=== PATIENT | female | born 1960 | race African-American/Black ===

== ENCOUNTER 2016-09-09 07:30 | Emergency (ER) | payer MEDICAID, OTHER ==
[~2016-09-09] VITALS: Ht 165.1 cm; Wt 140.0 kg
[~2016-09-09 07:30] MED LIST: AMLO10TA2 PO; CARV12.52 PO; ERGO1CAP10 PO; FURO80TA PO; HYDR-3583 PO; IBUP800T23 PO; JANU50TA4 PO; SPIR25TA PO
[2016-09-09 07:38] VITALS: BP 222/112; PULSE 86; RESP 24; TEMP 97.9; O2SAT 97
[2016-09-09 08:05] VITALS: BP 218/96; PULSE 72; RESP 18; TEMP 98.7; O2SAT 96
--- NOTE | 2016-09-09 08:06 | PD ---
HPI Chief Complaint: GI Complaint Time Seen by Provider: 08:06 Travel History International Travel<30 days: No Contact w/Intl Traveler<30days: No Traveled to known affect area: No History of Present Illness HPI 55-year-old female came to the emergency room with history of multiple complaints including left knee joint pain for past one year which has worsened over the past one month ago she is now starting to use the cane. She had an x- ray of the knee done 1 month ago. Patient had an x-ray done of that knee one year ago and was told that she should would require a knee replacement eventually. She is also complaining of cough and vomiting since last night. She says she has been upchucking after she coughs couple times. She was in the neighborhood and had come to drop her daughter to the high school when she decided to stop in the ER and get it checked. Her blood pressure was elevated in triage. Patient says she hasn't taken any of her medications this morning. She is otherwise awake and talking and answering questions appropriately. She called her primary care who asked her to come to the emergency room and see if she could be given a hydrocortisone shot in her knee. I explained to her that that is not the standard of care for emergency room practitioners. However further workup will be done to rule out any emergent issues. [facility] Past Medical History Narrative Medical List of her past medical, surgical, social and family history was reviewed from the nursing note. Autoimmune Disease: No Blood Disorders: No Heart Rhythm Problems: No Cancer: No Cardiac Catheterization: No Cardiovascular Problems: Yes (HTN) High Cholesterol: No Congestive Heart Failure: No Diabetes: Yes (METFORMIN) Diminished Hearing: No Glaucoma: No Hepatitis: No Hiatal Hernia: No Herniated Disk: Yes Hypertension: No Psychiatric: No Thyroid Disease: No PNEUMOCCOCAL Vaccine (Year): 2 Menopausal: Yes : 2 Para: 2 Past Surgical History Abdominal Surgery: Yes AICD: No Cardiac Surgery: No Section: Yes (X 2) Cholecystectomy: Yes Coronary Artery Bypass Graft: No Ear Surgery: No Endocrine Surgery: No Eye Surgery: No Genitourinary Surgery: No Gynecologic Surgery: Yes ( X 2) Oral Surgery: No Pacemaker: No Thoracic Surgery: No Other Surgery: Yes (HEMORRHOID SX; BREAST REDUCTION) Social History Alcohol Use: No Tobacco Use: Yes (1/2 PPD) Substance Use: No Allergies-Medications (Allergen,Severity, Reaction): Coded Allergies: Flagyl (Verified Allergy, Severe, HIVES, 09/09/16) Naproxen (Verified Adverse Reaction, Mild, Edema . STATES SHE IS NOT ALLERGIC TO ASPIRIN, 09/09/16) Comments List of her allergies reviewed from the nursing note. Reported Meds & Prescriptions Reported Meds & Active Scripts Active Reported Hydrocodone-Acetaminophen 10-325 mg Tab 1 Tab PO Q4H PRN Ibuprofen 800 Mg Tab 800 Mg PO Q8H PRN Janumet (Sitagliptin-Metformin) 50-500 Mg Tab 1 Tab PO DAILY Amlodipine (Amlodipine Besylate) 10 Mg Tab 10 Mg PO DAILY Spironolactone 25 Mg Tab 25 Mg PO BIDPC Furosemide 80 Mg Tab 80 Mg PO DAILY Vitamin D (Ergocalciferol) 50,000 Unit Cap 50,000 Units PO Q7D Carvedilol 12.5 Mg Tab 12.5 Mg PO DAILY Narrative Medication List of her home medications reviewed from the nursing note. Review of Systems Except as stated in HPI: all other systems reviewed are Neg Physical Exam Narrative GENERAL: Awake, alert, obese, no obvious distress SKIN: Focused skin assessment warm/dry. HEAD: Atraumatic. Normocephalic. EYES: Pupils equal and round. No scleral icterus. No injection or drainage. ENT: No nasal bleeding or discharge. Mucous membranes pink and moist. NECK: Trachea midline. No JVD. CARDIOVASCULAR: Regular rate and rhythm. No murmur appreciated. RESPIRATORY: No accessory muscle use. Clear to auscultation. Breath sounds equal bilaterally. GASTROINTESTINAL: Abdomen soft, non-tender, nondistended. Hepatic and splenic margins not palpable. MUSCULOSKELETAL: No obvious deformities. No clubbing. No cyanosis. No edema. Left knee is slightly swollen but not red or hot. Limited range of motion due to the pain at the knee joint. NEUROLOGICAL: Awake and alert. No obvious cranial nerve deficits. Motor grossly within normal limits. Normal speech. PSYCHIATRIC: Appropriate mood and affect; insight and judgment normal. Data Data Last Documented VS Vital Signs Date Time Temp Pulse Resp B/P Pulse Ox O2 Delivery O2 Flow Rate FiO2 09/09/16 09:54 193/95 09/09/16 08:05 98.7 72 18 96 Room Air Orders Complete Blood Count With Diff (09/09/16 08:21) Basic Metabolic Panel (Bmp) (09/09/16 08:21) Prothrombin Time / Inr (Pt) (09/09/16 08:21) Chest, Pa & Lat (09/09/16 ) Knee, Complete (4vws) (09/09/16 ) Amlodipine (Norvasc) (09/09/16 08:30) Uric Acid (09/09/16 08:21) Labs Laboratory Tests Test 09/09/16 08:28 White Blood Count 7.4 TH/MM3 Red Blood Count 4.16 MIL/MM3 Hemoglobin 12.0 GM/DL Hematocrit 38.2 % Mean Corpuscular Volume 91.7 FL Mean Corpuscular Hemoglobin 28.9 PG Mean Corpuscular Hemoglobin 31.5 % Concent Red Cell Distribution Width 13.0 % Platelet Count 237 TH/MM3 Mean Platelet Volume 10.2 FL Neutrophils (%) (Auto) 61.9 % Lymphocytes (%) (Auto) 28.7 % Monocytes (%) (Auto) 6.3 % Eosinophils (%) (Auto) 2.2 % Basophils (%) (Auto) 0.9 % Neutrophils # (Auto) 4.6 TH/MM3 Lymphocytes # (Auto) 2.1 TH/MM3 Monocytes # (Auto) 0.5 TH/MM3 Eosinophils # (Auto) 0.2 TH/MM3 Basophils # (Auto) 0.1 TH/MM3 CBC Comment DIFF FINAL Differential Comment Prothrombin Time 10.7 SEC Prothromb Time International 1.0 RATIO Ratio Sodium Level 137 MEQ/L Potassium Level 5.0 MEQ/L Chloride Level 99 MEQ/L Carbon Dioxide Level 34.7 MEQ/L Anion Gap 3 MEQ/L Blood Urea Nitrogen 8 MG/DL Creatinine 0.91 MG/DL Estimat Glomerular Filtration 78 ML/MIN Rate Random Glucose 153 MG/DL Uric Acid 5.3 MG/DL Calcium Level 9.1 MG/DL [facility] Medical Decision Making Medical Screen Exam Complete: Yes Emergency Medical Condition: Yes Medical Record Reviewed: Yes Differential Diagnosis Knee arthritis, knee effusion, essential hypertension, noncompliant Narrative Course 9 AM awaiting for blood test results. Patient has been given her amlodipine dose for her blood pressure. I have ordered x-ray of her chest as well as her knee. If everything is within normal limits I will discharge her home. 9:47 AM all the blood test and x-ray reports came back and within acceptable limits. I am comfortable discharging her home. Her knee x-ray showed worsening arthritis which I have let her know. She will try to call her orthopedics from [place] and started talking about the knee replacement. Meanwhile the nurses trying to get a minimal blood pressure on the patient. She did receive her amlodipine. Procedures EKG Prior to Arrival: No Diagnosis Primary Impression: Arthritis of knee Additional Impressions: acute on chronic knee pain Essential hypertension Obesity, morbid, BMI 50 or higher Referrals: Primary Care Physician 2 days Additional Instructions: Please take your blood pressure medication as prescribed. Follow-up with the orthopedics regarding your knee joint. Return to the ER if the condition worsens or any other new concerns. Exercise and weight loss would help with the arthritis as well. Med/Other Pt SpecificInfo: No Change to Meds Disposition: 01 DISCHARGE HOME Condition: Stable Sirisha Jimenez MD Sep 09, 2016 08:06
[2016-09-09 08:20] VITALS: BP 227/98
[2016-09-09 08:50] LABS: AUTOMATED NEUTROPHIL # 4.6 TH/MM3 (1.8-7.7); BASOPHIL # 0.1 TH/MM3 (0-0.2); BASOPHIL % 0.9 % (0.0-2.0); EOSINOPHIL # 0.2 TH/MM3 (0-0.4); EOSINOPHIL % 2.2 % (0.0-4.0); HEMATOCRIT 38.2 % (35.0-46.0); HEMO FLAGS DIFF FINAL; LYMPH % 28.7 % (9.0-44.0); LYMPHOCYTE # 2.1 TH/MM3 (1.0-4.8); MEAN CELL VOLUME 91.7 FL (80.0-100.0); MEAN CORPUSCULAR HEMOGLOBIN 28.9 PG (27.0-34.0); MEAN CORPUSCULAR HGB CONC 31.5 % (32.0-36.0); MONO % 6.3 % (0.0-8.0); NEUT % 61.9 % (16.0-70.0); PLATELET COUNT 237 TH/MM3 (150-450); RED BLOOD COUNT 4.16 MIL/MM3 (4.00-5.30); WHITE BLOOD COUNT 7.4 TH/MM3 (4.0-11.0)
[2016-09-09 09:03] LABS: PROTHROMBIN TIME - PATIENT 10.7 SEC (9.8-11.6)
[2016-09-09 09:15] LABS: BICARBONATE 34.7 MEQ/L (21.0-32.0); URIC ACID 5.3 MG/DL (2.6-6.0)
--- NOTE | 2016-09-09 09:17 | RADRPT ---
EXAM DATE/TIME: 09/09/2016 09:02 [facility] COMPARISON: No previous studies available for comparison. INDICATIONS : Patient states shortness of breath. MEDICAL HISTORY : None. SURGICAL HISTORY : None. ENCOUNTER: Initial ACUITY: 1 day PAIN SCORE: 2/10 LOCATION: Bilateral chest FINDINGS: Lungs are markedly under aerated. There is mild interstitial prominence probably normal for this to be of inspiration. I see no alveolar consolidation, pleural effusion or pneumothorax. CONCLUSION: Suboptimal chest based on inspiration and size. I see no overt congestive failure or consolidation. Doron Wade MD FACR on September 09, 2016 at 9:09 Board Certified Radiologist. This report was verified electronically.
--- NOTE | 2016-09-09 09:31 | RADRPT ---
EXAM DATE/TIME: 09/09/2016 09:02 [facility] COMPARISON: KNEE LEFT COMPLETE (4VWS), August 19, 2014, 22:02. INDICATIONS : Patient states left knee pain, no known trauma to area. MEDICAL HISTORY : None. SURGICAL HISTORY : None. ENCOUNTER: Initial ACUITY: 1 month PAIN SCORE: 8/10 LOCATION: Left Knee FINDINGS: There is no evidence of joint effusion or fracture. Mineralization and alignment are satisfactory. Th ere are prominent degenerative changes with tricompartmental joint space narrowing and osteophytes mo st prominent at the medial and patellofemoral compartments. These findings have progressed somewhat s benjamin the previous examination. CONCLUSION: Degenerative changes somewhat worse than on prior exam. No acute findings. Josh Mccarthy MD on September 09, 2016 at 9:28 Board Certified Radiologist. This report was verified electronically.
[2016-09-09 09:38] VITALS: BP 225/92
[2016-09-09 09:49] VITALS: BP 189/92
[2016-09-09 09:54] VITALS: BP 193/95
== END 2016-09-09 11:08 | disposition home or self-care (01) ==
LOC: NEPC 07:30
DX: M17.12 Unilateral primary osteoarthritis, left knee (principal); I10 Essential (primary) hypertension; F17.200 Nicotine dependence, unspecified, uncomplicated; R06.02 Shortness of breath; E66.01 Morbid (severe) obesity due to excess calories; Z68.43 Body mass index [BMI] 50.0-59.9, adult; E11.9 Type 2 diabetes mellitus without complications; Z79.84 Long term (current) use of oral hypoglycemic drugs
CPT/HCPCS: 71020; 73564; 80048; 84550; 85025; 85610; 99283

== ENCOUNTER 2017-09-23 16:45 | Emergency (ER) | payer MEDICARE, MEDICAID ==
[~2017-09-23] VITALS: Ht 165.1 cm; Wt 145.9 kg
[~2017-09-23 16:45] MED LIST changes: +IBUP1TAB7 PO; -IBUP800T23 PO
[2017-09-23 17:07] VITALS: BP 166/96; PULSE 96; RESP 20; TEMP 98.5; O2SAT 99
--- NOTE | 2017-09-23 18:10 | PD ---
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 Patient says that she went to see her primary care on Friday for dysuria and was started on ciprofloxacin. Patient says the dysuria has become better but since yesterday or day before she started having a lot of itching and burning in the vaginal area. She has never had this before. Right now it feels like it is on fire in their blisters. Patient was a little hypertensive and blood pressure has risen since she came in to the ER. Patient is a diabetic. [facility] Past Medical History Narrative Medical List of her past medical, surgical, social and family history is reviewed from the nursing note. Arthritis: Yes Autoimmune Disease: No Blood Disorders: No Anxiety: Yes (? heart ) Heart Rhythm Problems: No Cancer: No Cardiac Catheterization: No Cardiovascular Problems: Yes (HTN on mulp meds) High Cholesterol: No Congestive Heart Failure: No Diabetes: Yes (takes janumet now) Diminished Hearing: No Glaucoma: No Headaches: Yes Hepatitis: No Hiatal Hernia: No Herniated Disk: Yes Hypertension: Yes Musculoskeletal: Yes (knee and shoulder) Psychiatric: No Respiratory: Yes (r/t admission) Thyroid Disease: No PNEUMOCCOCAL Vaccine (Year): 2 Menopausal: Yes : 2 Para: 2 Past Surgical History Abdominal Surgery: Yes AICD: No Cardiac Surgery: No Section: Yes (X 2) Cholecystectomy: Yes Coronary Artery Bypass Graft: No Ear Surgery: No Endocrine Surgery: No Eye Surgery: No Genitourinary Surgery: No Gynecologic Surgery: Yes ( X 2) Oral Surgery: No Pacemaker: No Thoracic Surgery: No Other Surgery: Yes (HEMORRHOID SX; BREAST REDUCTION) Social History Alcohol Use: Yes (occ) Tobacco Use: Yes (1/2 PPD) Substance Use: No Allergies-Medications (Allergen,Severity, Reaction): Coded Allergies: metronidazole (Unverified Allergy, Severe, HIVES, 09/23/17) naproxen (Unverified Adverse Reaction, Mild, Edema . STATES SHE IS NOT ALLERGIC TO ASPIRIN, 4/17/18) Comments List of her allergies reviewed from the nursing note. Reported Meds & Prescriptions Reported Meds & Active Scripts Active Macrobid (Nitrofurantoin Monoh/Nitrofur Macro) 100 Mg Cap 100 Mg PO BID 7 Days Reported Hydrocodone-Acetaminophen 10-325 mg Tab 1 Tab PO Q4H PRN Ibuprofen 800 Mg Tab 800 Mg PO Q8H PRN Janumet (Sitagliptin-Metformin) 50-500 Mg Tab 1 Tab PO DAILY Amlodipine (Amlodipine Besylate) 10 Mg Tab 10 Mg PO DAILY Carvedilol 12.5 Mg Tab 12.5 Mg PO DAILY Narrative Medication List of her home medications reviewed from the nursing note. Review of Systems Except as stated in HPI: all other systems reviewed are Neg Genitourinary: Positive: Discharge Physical Exam Narrative GENERAL: Awake, alert, morbidly obese, mildest SKIN: Focused skin assessment warm/dry. HEAD: Atraumatic. Normocephalic. EYES: Pupils equal and round. No scleral icterus. No injection or drainage. ENT: No nasal bleeding or discharge. Mucous membranes pink and moist. NECK: Trachea midline. No JVD. CARDIOVASCULAR: Regular rate and rhythm. No murmur appreciated. RESPIRATORY: No accessory muscle use. Clear to auscultation. Breath sounds equal bilaterally. GASTROINTESTINAL: Abdomen soft, non-tender, nondistended. Hepatic and splenic margins not palpable. : External inspection appears to be normal. Speculum exam showed yellowish to greenish discharge without any foul odor. No mucosal or skin blisters or erosions noticed. MUSCULOSKELETAL: No obvious deformities. No clubbing. No cyanosis. No edema. NEUROLOGICAL: Awake and alert. No obvious cranial nerve deficits. Motor grossly within normal limits. Normal speech. PSYCHIATRIC: Appropriate mood and affect; insight and judgment normal. Data Data Last Documented VS Vital Signs Date Time Temp Pulse Resp B/P (MAP) Pulse Ox O2 Delivery O2 Flow Rate FiO2 09/23/17 18:18 94 20 182/82 (115) 100 Room Air 09/23/17 17:07 98.5 Orders Orders Urinalysis - C+S If Indicated (09/23/17 17:10) Gc And Chlamydia Pcr (09/23/17 18:54) Wet Prep Profile (09/23/17 18:54) Blood Glucose (09/23/17 19:20) Urine Culture (09/23/17 18:40) Nitrofurantoin Monohyd Macrocr (Macrobid (09/23/17 19:45) Ed Discharge Order (09/23/17 19:47) Labs Laboratory Tests Test 09/23/17 18:40 09/23/17 19:05 Urine Color YELLOW Urine Turbidity HAZY Urine pH 6.0 Urine Specific [place] 1.018 Urine Protein 30 mg/dL Urine Glucose (UA) NEG mg/dL Urine Ketones NEG mg/dL Urine Occult Blood SMALL Urine Nitrite NEG Urine Bilirubin NEG Urine Urobilinogen LESS THAN 2.0 MG/DL Urine Leukocyte Esterase LARGE Urine RBC 27 /hpf Urine WBC 20 /hpf Urine Squamous Epithelial Cells 15 /hpf Urine Bacteria FEW /hpf Urine Hyaline Casts 3 /lpf Urine Mucus FEW /lpf Microscopic Urinalysis Comment CULTURE INDICATED Clue Cells (Wet Prep) NONE SEEN Vaginal Trichomonas (Wet Prep) NONE SEEN Vaginal Yeast (Wet Prep) NONE SEEN Chlamydia trachomatis DNA (PCR) NOT DETECTED Neisseria gonorrhoeae DNA (PCR) NOT DETECTED MDM Medical Decision Making Medical Screen Exam Complete: Yes Emergency Medical Condition: Yes Medical Record Reviewed: Yes Differential Diagnosis Vaginitis, bacterial vaginosis, UTI Narrative Course 7:20 PM waiting for the UA and the wet prep. 7:47 PM UA suggestive of UTI with some RBCs. Wet prep is negative for everything. GC and Chlamydia is pending. I am comfortable discharging the patient home on Macrobid. First dose has been given here. Procedures EKG Prior to Arrival: No Diagnosis Primary Impression: Cystitis Additional Instructions: Stop taking the ciprofloxacin. Take the new medication that has been prescribed to you. Return to the emergency room if condition worsens or any other new concerns. Otherwise follow-up with your primary care. Med/Other Pt SpecificInfo: Prescription(s) given Scripts Nitrofurantoin Monohydrate Macrocrystals (Macrobid) 100 Mg Cap 100 MG PO BID for Infection for 7 Days, #14 CAP 0 Refills Prov: Sirisha Jimenez MD 09/23/17 Disposition: 01 DISCHARGE HOME Condition: Stable Sirisha Jimenez MD Sep 23, 2017 18:10
[2017-09-23 18:18] VITALS: BP 182/82; PULSE 94; RESP 20; O2SAT 100
[2017-09-23 19:35] LABS: BACTERIA, URINE FEW /hpf; BILIRUBIN, URINE NEG (NEG); BLOOD, URINE SMALL (NEG); GLUCOSE,URINE NEG (NEG); HYALINE CAST, URINE 3 /lpf (RARE); KETONE, URINE NEG (NEG); MUCUS URINE FEW /lpf (OCC); NITRITE,URINE NEG (NEG); SQUAMOUS EPITHELIAL CELL URINE 15 /hpf (0-5); URINE COLOR YELLOW (YELLW/STRAW); URINE LEUKOCYTE ESTERASE LARGE (NEG)
[2017-09-23] MEDS ORDERED: NITROFURANTOIN MONOHYD MACROCR 100 MG CAP PO ONE (19:45)
[2017-09-23] MEDS ORDERED: MACR100C2 PO (19:48)
== END 2017-09-23 21:23 | disposition home or self-care (01) ==
LOC: NEPD 16:45
DX: N30.90 Cystitis, unspecified without hematuria (principal); F17.200 Nicotine dependence, unspecified, uncomplicated; E11.9 Type 2 diabetes mellitus without complications; I10 Essential (primary) hypertension; Z79.84 Long term (current) use of oral hypoglycemic drugs
CPT/HCPCS: 81001; 87086; 87210; 87491; 87591; 99283

== ENCOUNTER 2017-11-25 11:15 | Emergency (ER) | payer MEDICARE, OTHER ==
[~2017-11-25] VITALS: Ht 165.1 cm; Wt 150.0 kg
[~2017-11-25 11:15] MED LIST changes: -ERGO1CAP10 PO; -FURO80TA PO; +MACR100C2 PO; -SPIR25TA PO
[2017-11-25 11:30] VITALS: BP 165/73; PULSE 90; RESP 20; TEMP 98.4; O2SAT 98
[2017-11-25] MEDS ORDERED: CYCL10TA PO (11:52)
--- NOTE | 2017-11-25 12:10 | PD ---
HPI Chief Complaint: Pain: Acute or Chronic Time Seen by Provider: 12:03 Travel History International Travel<30 days: No Contact w/Intl Traveler<30days: No Traveled to known affect area: No History of Present Illness HPI 57-year-old female with history of chronic right sided sciatica presents to the emergency room for exacerbation of symptoms. States for the past months she has had right-sided hip pain radiating down her entire right leg. Pain was well controlled and improved throughout the day with walking. She has been taking her prescribed hydrocodone 10/325, 800 mg ibuprofen, and Flexeril without any relief in symptoms. States last night she turned backwards suddenly while going up the stairs and exacerbated her symptoms. Pain was so severe she was up and down throughout the night. It is exacerbated with certain range of motion or twisting her hips. She denies loss of bowel or bladder control, saddle anesthesia. Reports occasional paresthesias of the right lower extremity. She sees pain management for chronic pains and has an appointment in 2 weeks. She also has an appointment next week for left knee replacement. History of prediabetes, hypertension. PFSH Past Medical History Arthritis: Yes Autoimmune Disease: No Blood Disorders: No Anxiety: Yes ( ) Heart Rhythm Problems: No Cancer: No Cardiac Catheterization: No Cardiovascular Problems: Yes ( ) High Cholesterol: No Congestive Heart Failure: No Diabetes: Yes ( ) Patient Takes Glucophage: No Diminished Hearing: No Gastrointestinal Disorders: Yes Glaucoma: No Genitourinary: No Headaches: Yes Hepatitis: No Hiatal Hernia: No Heparin Induced Thrombocytopen: No Herniated Disk: Yes Hypertension: Yes Medical other: Yes (UPCOMING SURGERY TO R KNEE) Musculoskeletal: Yes (knee and shoulder) Neurologic: No Psychiatric: No Respiratory: Yes (r/t admission) Thyroid Disease: No PNEUMOCCOCAL Vaccine (Year): 2 ?: Not Menopausal: Yes : 2 Para: 2 Past Surgical History Abdominal Surgery: Yes AICD: No Cardiac Surgery: No Section: Yes (X 2) Cholecystectomy: Yes Coronary Artery Bypass Graft: No Ear Surgery: No Endocrine Surgery: No Eye Surgery: No Genitourinary Surgery: No Gynecologic Surgery: Yes ( ) Neurologic Surgery: No Oral Surgery: No Pacemaker: No Thoracic Surgery: No Other Surgery: Yes (HEMORRHOID SX; BREAST REDUCTION) Social History Alcohol Use: Yes (occ) Tobacco Use: Yes (1/2 PPD) Substance Use: No Allergies-Medications (Allergen,Severity, Reaction): Coded Allergies: metronidazole (Unverified Allergy, Severe, HIVES, 09/23/17) naproxen (Unverified Adverse Reaction, Mild, Edema . STATES SHE IS NOT ALLERGIC TO ASPIRIN, 09/23/17) Reported Meds & Prescriptions Reported Meds & Active Scripts Active Reported Flexeril (Cyclobenzaprine HCl) 10 Mg Tab 10 Mg PO DIRECTED Hydrocodone-Acetaminophen 10-325 mg Tab 1 Tab PO Q4H PRN Ibuprofen 800 Mg Tab 800 Mg PO Q8H PRN Janumet (Sitagliptin-Metformin) 50-500 Mg Tab 1 Tab PO DAILY Amlodipine (Amlodipine Besylate) 10 Mg Tab 10 Mg PO DAILY Carvedilol 12.5 Mg Tab 12.5 Mg PO DAILY Review of Systems Except as stated in HPI: all other systems reviewed are Neg Physical Exam Narrative GENERAL: Well-nourished, morbidly obese female no acute distress. Afebrile. Ambulatory. SKIN: Focused skin assessment warm/dry. HEAD: Normocephalic. EYES: No scleral icterus. No injection or drainage. NECK: Supple, trachea midline. No JVD or lymphadenopathy. CARDIOVASCULAR: Regular rate and rhythm without murmurs, gallops, or rubs. RESPIRATORY: Breath sounds equal bilaterally. No accessory muscle use. BACK: No midline tenderness. No obvious deformity. No CVA tenderness. Positive straight leg raise on the right. 2+ dorsalis pedis pulses are equal bilaterally. 2+ patellar reflexes are equal bilaterally. 1+ Achilles reflexes are equal bilaterally. Data Data Last Documented VS Vital Signs Date Time Temp Pulse Resp B/P (MAP) Pulse Ox O2 Delivery O2 Flow Rate FiO2 11/25/17 11:30 98.4 90 20 165/73 (103) 98 Orders Orders Ketorolac Inj (Toradol Inj) (11/25/17 12:15) Orphenadrine Inj (Norflex Inj) (11/25/17 12:15) MDM Medical Decision Making Medical Screen Exam Complete: Yes Emergency Medical Condition: Yes Medical Record Reviewed: Yes Differential Diagnosis Sciatica, SI joint pain, spasm, strain Narrative Course 57-year-old female presents to the emergency room for evaluation of acute exacerbation of chronic right-sided sciatica. Symptoms have been ongoing for the past several months but worsened last night when patient turned suddenly while going up the stairs. Pain is severe and caused her to be up and down throughout the night. No focal neurologic deficits. No midline tenderness. Patient is ambulatory. No midline tenderness. Positive straight leg raise. Legs are neurovascularly intact distally. Patient was informed that there is not much we can do from the emergency room because she is already prescribed 100 mg ibuprofen, Flexeril, and hydrocodone 04/02. She was offered Toradol and Norflex and happily accepted treatment. She was discharged with instructions to follow-up with her pain management physician for outpatient hydrocortisone injections if need be or return for any worsening symptoms. She understands and agrees to plan. Diagnosis Primary Impression: Right sided sciatica Referrals: Pain Management Additional Instructions: Rest and drink plenty of fluids. Take prescribed medications as needed for pain. Apply moist heat to the affected area for 20 minutes at a time, as needed for pain and swelling. Follow-up with pain management physician Return to the emergency room for worsening symptoms. Disposition: 01 DISCHARGE HOME Condition: Stable Jennifer Woodall Nov 25, 2017 12:10
[2017-11-25] MEDS ORDERED: ORPHENADRINE INJ 60 MG/2 ML AMP IM ONE (12:15)
[2017-11-25] MEDS ORDERED: KETOROLAC TROMETHAMINE 60 MG/2 ML (IM) VIAL IM ONE (12:15)
== END 2017-11-25 15:31 | disposition home or self-care (01) ==
LOC: NEPK 11:15
DX: M54.31 Sciatica, right side (principal); I10 Essential (primary) hypertension; R73.03 Prediabetes; M19.90 Unspecified osteoarthritis, unspecified site; F41.9 Anxiety disorder, unspecified; F17.200 Nicotine dependence, unspecified, uncomplicated; Z79.899 Other long term (current) drug therapy; Z88.8 Allergy status to other drugs, medicaments and biological substances
CPT/HCPCS: 96372; 99283; J1885; J2360